=== PATIENT | male | born 1950 | race Caucasian/White ===

== ENCOUNTER 2018-04-18 07:17 | Day surgery (SDC) | payer MEDICARE, BC ==
[2018-04-18] VITALS (18 sets, daily range): BP systolic 98–165; BP diastolic 55–99
[~2018-04-18] VITALS: Ht 170.2 cm; Wt 126.3 kg
[~2018-04-18 07:17] MED LIST: APIX5TAB3 PO; ATE25T PO; COLC0.6T67 PO; GLIM1TAB46 PO; METO10TA3 PO; OLME1TAB22 PO; SAXA5TAB PO
[2018-04-18] MEDS ORDERED: normal saline 1000ml 1,000 ML IV SCH (07:35)
[2018-04-18] MEDS ORDERED: MIDAZolam 5mg/ml 2ml vial IV ONE (07:35)
[2018-04-18] MEDS ORDERED: fentaNYL/PF 50MCG/1 ML 2ML syringe IV ONE (07:35)
[2018-04-18] MEDS ORDERED: AMIO200T40 PO (07:54)
[2018-04-18] MEDS ORDERED: APIX5TAB3 PO (07:54)
[2018-04-18] MEDS ORDERED: ATOR10TA87 PO (07:54)
[2018-04-18] MEDS ORDERED: FURO-150 PO (07:54)
[2018-04-18] MEDS ORDERED: BETA1TAB20 PO (07:54)
[2018-04-18] MEDS ORDERED: SITA100T11 PO (07:54)
[2018-04-18] MEDS ORDERED: OLME40TA13 PO (07:54)
[2018-04-18] MEDS ORDERED: MIRA50TA PO (07:54)
[2018-04-18 08:25] LABS: BASOPHILS % (AUTO) 0.6 % (0-1); EOSINOPHILS # (AUTO) 0.2 X10'3 (0-0.9); EOSINOPHILS % (AUTO) 3.7 % (0-6); HEMATOCRIT 46.1 % (42.0-52.0); HEMOGLOBIN 15.4 g/dl (14.0-17.9); LYMPHOCYTES # (AUTO) 1.5 X10'3 (1.1-4.8); LYMPHOCYTES % (AUTO) 24.4 % (21-51); MEAN CORPUSCULAR HEMOGLOBIN 32.2 PG (27.0-31.0); MEAN CORPUSCULAR HGB CONC 33.5 % (33.0-36.5); MEAN CORPUSCULAR VOLUME 96.2 FL (78-98); MEAN PLATELET VOLUME 9.3 FL (7.4-10.4); MONOCYTES % (AUTO) 15.3 % (2-12); NEUTROPHILS # (AUTO) 3.6 X10'3 (1.8-7.7); PLATELET COUNT 108 X10'3 (140-440); RED BLOOD COUNT 4.79 X10'6 (4.70-6.10); WHITE BLOOD COUNT 6.4 X10'3 (4.5-11.0)
[2018-04-18 08:38] LABS: ALBUMIN 2.7 G/DL (3.4-5.0); ANION GAP 9 (8-16); BLOOD UREA NITROGEN 19 MG/DL (7-18); BUN/CREATININE RATIO 13.7 (5.4-32.0); CALCIUM 9.1 MG/DL (8.5-10.1); CHLORIDE 102 MMOL/L (99-107); CREATININE 1.39 MG/DL (0.60-1.10); GLUCOSE 154 MG/DL (70-104); MAGNESIUM 1.5 MG/DL (1.5-2.4); POTASSIUM 3.9 MMOL/L (3.5-5.1); SODIUM 137 MMOL/L (135-145); TOTAL CARBON DIOXIDE 25.8 MMOL/L (24-32); eGFR 51 ML/MIN
[2018-04-18 08:48] LABS: INR 1.5 INR
== END 2018-04-18 11:45 | disposition home or self-care (01) ==
LOC: SSTAY O 07:17
PROVIDERS: ATTEND Internal Medicine Cardiovascular Disease
DX: I48.91 Unspecified atrial fibrillation (principal); E11.9 Type 2 diabetes mellitus without complications; G47.33 Obstructive sleep apnea (adult) (pediatric); Z86.73 Personal history of transient ischemic attack (TIA), and cerebral infarction without residual deficits; I42.9 Cardiomyopathy, unspecified; E66.01 Morbid (severe) obesity due to excess calories; Z87.891 Personal history of nicotine dependence; Z72.89 Other problems related to lifestyle; F15.90 Other stimulant use, unspecified, uncomplicated; F11.90 Opioid use, unspecified, uncomplicated; Z79.01 Long term (current) use of anticoagulants; Z98.49 Cataract extraction status, unspecified eye; Z98.890 Other specified postprocedural states
CPT/HCPCS: 36415; 80048; 82948; 83735; 85025; 85610; 92960; 93005; J2250; J3010; J7030